=== PATIENT | female | born 1975 | race Caucasian/White ===

== ENCOUNTER 2016-07-24 22:07 | Emergency (ER) | payer OTHER ==
[2016-07-24 22:15] VITALS: BP 136/95; PULSE 79
[2016-07-24] MEDS ORDERED: IBUPROFEN 800 MG TAB PO ONE (22:25)
--- NOTE | 2016-07-24 22:26 | UCPHY ---
H & P Patient Type: New Chief Complaint Nursing Narrative: Pain and throbbing R lateral upper thigh, and down to knee, and warren-for three days. Time Seen by Provider: 07/24/16 22:19 HPI/ROS: CHIEF COMPLAINT: Right lateral thigh pain HISTORY OF PRESENT ILLNESS: Patient is a 41 year old female who comes to the Urgent Care complaining of pain in to her right lateral thigh going from the right hip to her right lateral knee. She states that the pain is gradually increased over the last couple of weeks. She broke her ankle on the left a few weeks ago and thinks that she has been compensating. No joint pain in her hip. No low back pain. No paresthesias or weakness. No bowel or bladder abnormalities. No trauma. No fever. No rash. No erythema. No swelling. REVIEW OF SYSTEMS: Constitutional: denies: chills, fever, recent illness, recent injury EENTM: denies: blurred vision, double vision, nose congestion Respiratory: denies: cough, shortness of breath Cardiac: denies: chest pain, irregular heart rate, lightheadedness, palpitations Gastrointestinal/Abdominal: denies: abdominal pain, diarrhea, nausea, vomiting, blood streaked stools Genitourinary: denies: dysuria, frequency, hematuria, pain Musculoskeletal: See HPI Skin: denies: lesions, rash, jaundice, bruising Neurological: denies: headache, numbness, paresthesia, tingling, dizziness, weakness Hematologic/Lymphatic: denies: blood clots, easy bleeding, easy bruising Immunologic/allergic: denies: HIV/AIDS, transplant EXAM: GENERAL: Well-appearing, well-nourished and in no acute distress. HEAD: Atraumatic, normocephalic. EYES: Pupils equal round and reactive to light, extraocular movements intact, sclera anicteric, conjunctiva are normal. ENT: TMs normal, nares patent, oropharynx clear without exudates. Moist mucous membranes. NECK: Normal range of motion, supple without lymphadenopathy or JVD. LUNGS: Breath sounds clear to auscultation bilaterally and equal. No wheezes rales or rhonchi. HEART: Regular rate and rhythm without murmurs, rubs or gallops. ABDOMEN: Soft, nontender, normoactive bowel sounds. No guarding, no rebound. No masses appreciated. BACK: No CVA tenderness, no spinal tenderness, step-offs or deformities EXTREMITIES: Normal range of motion, no pitting or edema. No clubbing or cyanosis. Mild pain with abduction of hip laterally. No tenderness, no swelling no pain with passive motion NEUROLOGICAL: Cranial nerves II through XII grossly intact. Normal speech, normal gait. 5/5 strength, normal movement in all extremities, normal sensation PSYCH: Normal mood, normal affect. SKIN: Warm, dry, normal turgor, no visible rashes or lesions. Source: Patient Exam Limitations: No limitations - Personal History LMP (Females 10-55): 1-7 Days Ago Current Tetanus/Diphtheria Vaccine: Unsure Current Tetanus Diphtheria and Acellular Pertussis (TDAP): Unsure - Medical/Surgical History Hx Asthma: No Hx Chronic Respiratory Disease: No Hx Diabetes: No Hx Cardiac Disease: No Hx Renal Disease: No Hx Cirrhosis: No Hx Alcoholism: No Hx HIV/AIDS: No Hx Splenectomy or Spleen Trauma: No Other PMH: Denies - Family History Significant Family History: No pertinent family hx - Social History Smoking Status: Former smoker Alcohol Use: Sober Drug Use: None Constitutional: Initial Vital Signs Temperature (C) 36.6 C 07/24/16 22:10 Heart Rate 79 07/24/16 22:10 Respiratory Rate 16 07/24/16 22:10 Blood Pressure 136/95 H 07/24/16 22:10 O2 Sat (%) 97 07/24/16 22:10 O2 Delivery Mode Room Air Allergies/Adverse Reactions: No Known Allergies Allergy (Unverified 07/24/16 22:15) Home Medications: Medication Instructions Recorded Ibuprofen 800 mg PO TID PRN #30 tablet 07/24/16 Medical Decision Making ED Course/Re-evaluation: The patient's symptoms are consistent with IT band syndrome. Encouraged ibuprofen and rest. She states that she works and is always walking. She does request prescription strength ibuprofen. She declines imaging or other testing. Discussed indications for follow-up and returning to the emergency department. Differential Diagnosis: Partial list of the Differential diagnosis considered include but were not limited to; tendinitis, muscle strain, bursitis and although unlikely based on the history and physical exam, I also considered joint infection, fracture, radiculopathy, DVT, contusion, fasciitis. I discussed these differential diagnoses and the plan with the patient as well as the usual and expected course. The patient understands that the diagnosis is provisional and that in medicine we are not always correct and that further workup is often warranted. Usual and customary warnings were given. All of the patient's questions were answered. The patient was instructed to return to the emergency department should the symptoms at all worsen or return, otherwise to followup with the physician as we discussed. - Data Points Medications Given: Discontinued Medications Ibuprofen (Motrin) 800 mg PO EDNOW ONE Stop: 07/24/16 22:26 Last Admin: 07/24/16 22:37 Dose: Not Given Departure - Departure Disposition: Home, Routine, Self-Care Clinical Impression: IT band syndrome Qualifiers: Laterality: right Qualified Code(s): M76.31 - Iliotibial band syndrome, right leg Condition: Fair Instructions: Tendinitis (ED) Referrals: Morro Cary MD [Primary Care Provider] - As per Instructions Prescriptions: Ibuprofen 800 mg PO TID PRN #30 tablet PRN Reason: Pain, Moderate - PQRS PQRS Measurement: Not applicable
[2016-07-24] MEDS ORDERED: IBUPROFEN 600 MG TAB PO ONE (22:29)
[2016-07-24] MEDS ORDERED: IBUPROFEN 200 MG TAB PO ONE (22:29)
[2016-07-24 22:42] VITALS: RESP 20; TEMP 98.6; O2SAT 95
== END 2016-07-24 22:38 | disposition home or self-care (01) ==
LOC: CED 22:07
DX: M76.31 Iliotibial band syndrome, right leg (principal); Z87.891 Personal history of nicotine dependence
CPT/HCPCS: G0463-PO

== ENCOUNTER 2016-07-25 16:20 | Emergency (ER) | payer OTHER ==
[2016-07-25 16:30] VITALS: PULSE 76; RESP 16; TEMP 97.7
[2016-07-25 17:34] VITALS: BP 120/71; O2SAT 96
== END 2016-07-25 17:34 | disposition home or self-care (01) ==
LOC: CED 16:20
DX: M79.661 Pain in right lower leg (principal)
CPT/HCPCS: G0463-PO